=== PATIENT | female | born 1960 | race Caucasian/White ===

== ENCOUNTER → 2018-02-27 | Outpatient (CLI) | payer BC ==
[2015-03-05 14:30] VITALS: BP 100/63
[~2018-02-27] MED LIST: CLIN150C2 PO; ENOX40DI SQ; IOHEXOL 300 MG/ML 100ML VIAL. IV ONE; LEVO25TA4 PO; OLME20TA17 PO; SIMV10TA3 PO; THYR30TA PO
--- NOTE | 2018-02-27 17:44 | KCIC ---
CT CHEST W/CONTRAST Indication: Pericardial cyst, follow-up. Difficulty swallowing. Exposure: One or more of the following individualized dose reduction techniques were utilized for this examination: 1. Automated exposure control 2. Adjustment of the mA and/or kV according to patient size 3. Use of iterative reconstruction technique. Comparison: July 02, 2014 Contrast: Intravenous contrast given. Thoracic aorta: Calcified, without evidence of aneurysm or dissection. Great vessel origins:Patent Pulmonary arteries:Main central arteries appear patent. Thyroid gland:Visualized aspect is unremarkable. Lymph nodes:No significant enlargement Heart: No significant pericadial effusion. Esophagus: Unremarkable Pleural spaces: No significant effusion Please identified to the right of the heart and just above the right hemidiaphragm is again demonstrated is has increased in size since prior study. Now measures 9.5 cm wide by 11.3 cm AP by 3.0 cm. This again measures simple fluid density, 10 Hounsfield units or less. This does not result in any apparent mass effect. Lungs: No dominant airspace consolidation or large mass. Several areas of minimal subpleural nodularity are seen at the posterior right lower lobe. Trachea and central airways: Patent Spine: Mild anterior wedging of a midthoracic vertebral body, compatible with a mild compression fracture, likely chronic. Note that sagittal images are not available from the prior study for comparison. However this appears similar on the coronal plane. Bones: No destructive process. Upper abdomen: Slices through the upper abdomen are limited due to the technique. No obvious acute findings. Impression: 1. The right pericardial and supradiaphragmatic cystic lesion has increased in size since the previous study, now measuring 9.5 cm bilobed 0.3 cm x 3.0 cm. 2. There are several areas of very mild subpleural nodularity in the posterior right pulmonary lobe, questionable significance. Largest of these measures 6 mm by 3 mm. Follow-up CT scan in 6-12 months could be considered for further evaluation as per Fleischner Society criteria. Electronically signed by: Javier Houston MD (02/27/2018 5:40 PM) [id number]
== END | disposition home or self-care (01) ==
LOC: KCIC CT 15:03
PROVIDERS: ATTEND Internal Medicine Cardiovascular Disease
DX: I31.8 Other specified diseases of pericardium (principal); R13.19 Other dysphagia; I10 Essential (primary) hypertension
CPT/HCPCS: 71260; Q9967